=== PATIENT | female | born 1985 | race Caucasian/White ===

== ENCOUNTER 2018-02-11 16:37 | Emergency (ER) | payer OTHER ==
[2018-02-11] MEDS ORDERED: Sodium Chloride 0.9% 10 ML Syringe FLUSH PRN (16:48)
[2018-02-11] MEDS ORDERED: Sodium Chloride 0.9% 1,000 ML IV ONE (16:50)
[2018-02-11] MEDS ORDERED: Ketorolac 30 MG/ML SDV IVPUSH ONE (16:50)
--- NOTE | 2018-02-11 17:06 | EDM.PDOC ---
ED HPI GENERAL MEDICAL PROBLEM - General Chief Complaint: General Stated Complaint: [id number] HIGH FEVER NAUSEA DIZZY Time Seen by Provider: 02/11/18 16:50 Source of Information: Reports: Patient History Limitations: Reports: No Limitations - History of Present Illness INITIAL COMMENTS - FREE TEXT/NARRATIVE: Patient comes emergency department today with complaints of headaches sore throat and fever that started last night. She has taken some ibuprofen last night and some Tylenol earlier today which has helped the fever but is still quite elevated. She complains of a sore throat. No ear pain and sinus congestion. Generalized headache. Sore throat. No chest pain no shortness of breath difficulty breathing or cough. No abdominal pain but does complain of some bilateral flank pain. No hematuria dysuria or urinary frequency outside of the norm she reports. She typically urinates on a more frequent basis. She does complain of generalized malaise and fatigue and minimal myalgias. No neck pain. No confusion. No rash. She is currently on her menstrual cycle. Headache Pain Score (Numeric/FACES): 3 - Related Data Allergies Allergy/AdvReac Type Severity Reaction Status Date / Time No Known Allergies Allergy Verified 02/11/18 16:41 Home Meds: Home Meds Magnesium 500 mg PO DAILY 02/20/16 [History] Past Medical History - Past Health History Medical/Surgical History: Denies Medical/Surgical History HEENT History: Reports: Impaired Vision Other HEENT History: wears glasses [employer] History: Reports: - Past Surgical History HEENT Surgical History: Reports: Adenoidectomy, Tonsillectomy Social & Family History - Family History Family Medical History: Noncontributory - Tobacco Use Smoking Status *Q: Never Smoker Second Hand Smoke Exposure: No - Caffeine Use Caffeine Use: Reports: Coffee - Recreational Drug Use Recreational Drug Use: No ED ROS GENERAL - Review of Systems Review Of Systems: ROS reveals no pertinent complaints other than HPI. ED EXAM, GENERAL - Physical Exam Exam: See Below Free Text/Narrative:: Appears quite flushed and somewhat fatigued. Exam Limited By: No Limitations General Appearance: Alert, WD/WN, Mild Distress Eye Exam: Bilateral Eye: Normal Inspection Ears: Normal External Exam, Normal TMs Ear Exam: Bilateral Ear: TM normal Nose: Normal Inspection, Normal Mucosa Throat/Mouth: Other (Generalized pharyngitis with erythema no exudate. Tonsils have been surgically removed. Uvula is midline. No drooling.) Head: Atraumatic, Normocephalic. No: Facial Swelling, Sinus Tenderness Neck: Normal Inspection, Non-Tender, Lymphadenopathy (L), Lymphadenopathy (R) ( Left greater than right primarily tonsillar lymphadenopathy.). No: Tender Lateral, Tender Midline Respiratory/Chest: No Respiratory Distress, Lungs Clear, Normal Breath Sounds, No Accessory Muscle Use, Chest Non-Tender Cardiovascular: Normal Peripheral Pulses, Regular Rate, Rhythm Peripheral Pulses: 2+: Radial (L), Radial (R), Posterior Tibial (L), Posterior Tibial (R), Dorsalis Pedis (L), Dorsalis Pedis (R) GI/Abdominal: Normal Bowel Sounds, Soft, Pelvis Stable, Tender (Mild tenderness to the left UPPER quadrant no rebound tenderness or guarding. ). No: No Organomegaly (? splenomegaly. ) (Female) Exam: Deferred Rectal (Female) Exam: Deferred Back Exam: Normal Inspection, Full Range of Motion Extremities: Normal Inspection, Normal Range of Motion, Non-Tender, Normal Capillary Refill Neurological: Alert, Oriented, CN II-XII Intact, No Motor/Sensory Deficits Skin Exam: Erythema, Increased Warmth. No: Rash Course - Vital Signs Last Recorded V/S: Last Vital Signs Temp 37.7 C 02/11/18 18:43 Pulse 88 02/11/18 18:43 Resp 15 02/11/18 18:43 BP 110/50 L 02/11/18 18:43 Pulse Ox 98 02/11/18 18:43 - Orders/Labs/Meds Orders: Active Orders 24 hr Category Date Time Status Peripheral IV Care [RC] . DIRECTED Care 02/11/18 16:49 Active CULTURE STREP A CONFIRMATION [RM] Stat Lab 02/11/18 16:56 Results HCG QUALITATIVE,URINE [URCHEM] Stat Lab 02/11/18 17:03 Ordered STREP SCRN A RAPID W CULT CONF [RM] Stat Lab 02/11/18 16:56 Results UA W/MICROSCOPIC [URIN] Stat Lab 02/11/18 17:03 Ordered [facility] [REF] Stat Lab 02/11/18 17:01 Received Peripheral IV Insertion Adult [OM.PC] Stat Oth 02/11/18 16:48 Ordered Labs: Laboratory Tests 02/11/18 02/11/1802/11/18 Range/Units 17:01 17:01 17:01 WBC 10.0 (5.0-10.0) 10^3/uL RBC 4.40 (4.2-5.4) 10^6/uL Hgb 13.2 (12.0-16.0) g/dL Hct 38.6 (37.0-47.0) % MCV 87.7 D (80-100) fL MCH 30.0 (27.0-34.0) pg MCHC 34.2 (33.0-35.0) g/dL Plt Count 215 (150-450) 10^3/uL Neut % (Auto) 81.1 H (42.2-75.2) % Lymph % (Auto) 7.5 L (20.5-50.1) % [place] % (Auto) 10.8 H (2-8) % Eos % (Auto) 0.4 L (1.0-3.0) % Baso % (Auto) 0.2 (0.0-1.0) % Sodium 134 L (135-145) mmol/L Potassium 3.1 L (3.6-5.0) mmol/L Chloride 103 (101-111) mmol/L Carbon Dioxide 23.0 (21.0-31.0) mmol/L Anion Gap 11.1 BUN 13 (7-18) mg/dL Creatinine 0.6 (0.6-1.3) mg/dL Est Cr Clr Drug Dosing 116.24 mL/min Estimated GFR (MDRD) > 60 BUN/Creatinine Ratio 21.66 Glucose 142 H (74-105) mg/dL Lactic Acid 1.2 (0.5-2.2) mmol/L Calcium 8.8 (8.4-10.2) mg/dl Total Bilirubin 0.5 (0.2-1.0) mg/dL AST 17 (10-42) IU/L ALT 13 (10-60) IU/L Alkaline Phosphatase 38 L (42-121) IU/L C-Reactive Protein (0.0-1.3) mg/dL Total Protein 6.9 (6.7-8.2) g/dl Albumin 3.8 (3.2-5.5) g/dl Globulin 3.1 Albumin/Globulin Ratio 1.23 Urine Color (YELLOW) Urine Appearance (CLEAR) Urine pH (5.0-9.0) Ur Specific [place] (1.005-1.030) Urine Protein (NEGATIVE) Urine Glucose (UA) (NEGATIVE) Urine Ketones (NEGATIVE) Urine Occult Blood (NEGATIVE) Urine Nitrite (NEGATIVE) Urine Bilirubin (NEGATIVE) Urine Urobilinogen (0.2-1.0) mg/dL Ur Leukocyte Esterase (NEGATIVE) Urine RBC /HPF Urine WBC (0-5/HPF) /HPF Ur Epithelial Cells /HPF Amorphous Sediment (0/HPF) /HPF Urine Bacteria (0-FEW/HPF) /HPF Urine Mucus /LPF Urine HCG, Qual Monoscreen 02/11/18 02/11/18 02/11/18 Range/Units 17:01 17:01 17:03 WBC (5.0-10.0) 10^3/uL RBC (4.2-5.4) 10^6/uL Hgb (12.0-16.0) g/dL Hct (37.0-47.0) % MCV (80-100) fL MCH (27.0-34.0) pg MCHC (33.0-35.0) g/dL Plt Count (150-450) 10^3/uL Neut % (Auto) (42.2-75.2) % Lymph % (Auto) (20.5-50.1) % [place] % (Auto) (2-8) % Eos % (Auto) (1.0-3.0) % Baso % (Auto) (0.0-1.0) % Sodium (135-145) mmol/L Potassium (3.6-5.0) mmol/L Chloride (101-111) mmol/L Carbon Dioxide (21.0-31.0) mmol/L Anion Gap BUN (7-18) mg/dL Creatinine (0.6-1.3) mg/dL Est Cr Clr Drug Dosing mL/min Estimated GFR (MDRD) BUN/Creatinine Ratio Glucose (74-105) mg/dL Lactic Acid (0.5-2.2) mmol/L Calcium (8.4-10.2) mg/dl Total Bilirubin (0.2-1.0) mg/dL AST (10-42) IU/L ALT (10-60) IU/L Alkaline Phosphatase (42-121) IU/L C-Reactive Protein 5.8 H (0.0-1.3) mg/dL Total Protein (6.7-8.2) g/dl Albumin (3.2-5.5) g/dl Globulin Albumin/Globulin Ratio Urine Color Yellow (YELLOW) Urine Appearance Slightly cloudy (CLEAR) Urine pH 7.0 (5.0-9.0) Ur Specific [place] 1.015 (1.005-1.030) Urine Protein Negative (NEGATIVE) Urine Glucose (UA) Negative (NEGATIVE) Urine Ketones Negative (NEGATIVE) Urine Occult Blood Small H (NEGATIVE) Urine Nitrite Negative (NEGATIVE) Urine Bilirubin Negative (NEGATIVE) Urine Urobilinogen 0.2 (0.2-1.0) mg/dL Ur Leukocyte Esterase Negative (NEGATIVE) Urine RBC 0-5 /HPF Urine WBC 0-5 (0-5/HPF) /HPF Ur Epithelial Cells Moderate H /HPF Amorphous Sediment Moderate H (0/HPF) /HPF Urine Bacteria Few (0-FEW/HPF) /HPF Urine Mucus Rare /LPF Urine HCG, Qual Monoscreen Negative 02/11/18 Range/Units 17:03 WBC (5.0-10.0) 10^3/uL RBC (4.2-5.4) 10^6/uL Hgb (12.0-16.0) g/dL Hct (37.0-47.0) % MCV (80-100) fL MCH (27.0-34.0) pg MCHC (33.0-35.0) g/dL Plt Count (150-450) 10^3/uL Neut % (Auto) (42.2-75.2) % Lymph % (Auto) (20.5-50.1) % [place] % (Auto) (2-8) % Eos % (Auto) (1.0-3.0) % Baso % (Auto) (0.0-1.0) % Sodium (135-145) mmol/L Potassium (3.6-5.0) mmol/L Chloride (101-111) mmol/L Carbon Dioxide (21.0-31.0) mmol/L Anion Gap BUN (7-18) mg/dL Creatinine (0.6-1.3) mg/dL Est Cr Clr Drug Dosing mL/min Estimated GFR (MDRD) BUN/Creatinine Ratio Glucose (74-105) mg/dL Lactic Acid (0.5-2.2) mmol/L Calcium (8.4-10.2) mg/dl Total Bilirubin (0.2-1.0) mg/dL AST (10-42) IU/L ALT (10-60) IU/L Alkaline Phosphatase (42-121) IU/L C-Reactive Protein (0.0-1.3) mg/dL Total Protein (6.7-8.2) g/dl Albumin (3.2-5.5) g/dl Globulin Albumin/Globulin Ratio Urine Color (YELLOW) Urine Appearance (CLEAR) Urine pH (5.0-9.0) Ur Specific [place] (1.005-1.030) Urine Protein (NEGATIVE) Urine Glucose (UA) (NEGATIVE) Urine Ketones (NEGATIVE) Urine Occult Blood (NEGATIVE) Urine Nitrite (NEGATIVE) Urine Bilirubin (NEGATIVE) Urine Urobilinogen (0.2-1.0) mg/dL Ur Leukocyte Esterase (NEGATIVE) Urine RBC /HPF Urine WBC (0-5/HPF) /HPF Ur Epithelial Cells /HPF Amorphous Sediment (0/HPF) /HPF Urine Bacteria (0-FEW/HPF) /HPF Urine Mucus /LPF Urine HCG, Qual Negative Monoscreen Meds: Medications Discontinued Medications Generic Name Dose Route Start Last Admin Trade Name Freq PRN Reason Stop Dose Admin Sodium Chloride 1,000 mls @ 999 mls/hr 02/11/18 16:50 02/11/18 17:01 Normal Saline IV 02/11/18 17:50 999 mls/hr .BOLUS ONE Administration Ketorolac Tromethamine 30 mg 02/11/18 16:50 02/11/18 17:01 Toradol IVPUSH 02/11/18 16:51 30 mg ONETIME ONE Administration Sodium Chloride 10 ml 02/11/18 16:48 02/11/18 17:02 Saline Flush FLUSH 10 ml ASDIRECTED PRN Administration Keep Vein Open - Re-Assessments/Exams Free Text/Narrative Re-Assessment/Exam: 02/11/18 17:07 IV NS 1 liter wide open Ketorolac 30mg IVP 02/11/18 following the above therapy the patient was rather symptomatic free. Her headaches sore throat myalgias and fatigue was resolved. She feels back to normal she relates. Her laboratory evaluation is rather unremarkable with a normal white blood cell count although she does have a minimally elevated monos as well.Her strep screen and urinalysis are negative at this time. Whenever she does not have mononucleosis with erythema in the sore throat or monoscreen is negative although this is not uncommon in the early stages mononucleosis.If she gets worse in any way in the next couple of days she is to recheck. Symptomatic management at this time. Departure - Departure Time of Disposition: 18:33 Disposition: Home, Self-Care 01 Clinical Impression: Febrile illness, Dehydration fever - Discharge Information Instructions: Fever, Adult, [id number] Forms: ED Department Discharge Additional Instructions: Tylenol and or Ibuprofen as needed for pain fever. Push oral fluids over the next few days. Rest as much as possible. Return to the ED if new or worsening symptoms. Follow up with primary care provider in the next 4-6 days for recheck. - My Orders Last 24 Hours: My Active Orders 02/11/18 16:48 Peripheral IV Insertion Adult [OM.PC] Stat 02/11/18 16:49 Peripheral IV Care [RC] . DIRECTED 02/11/18 16:56 CULTURE STREP A CONFIRMATION [RM] Stat STREP SCRN A RAPID W CULT CONF [RM] Stat 02/11/18 17:01 [facility] [REF] Stat 02/11/18 17:03 HCG QUALITATIVE,URINE [URCHEM] Stat UA W/MICROSCOPIC [URIN] Stat - Assessment/Plan Last 24 Hours: My Active Orders 02/11/18 16:48 Peripheral IV Insertion Adult [OM.PC] Stat 02/11/18 16:49 Peripheral IV Care [RC] . DIRECTED 02/11/18 16:56 CULTURE STREP A CONFIRMATION [RM] Stat STREP SCRN A RAPID W CULT CONF [RM] Stat 02/11/18 17:01 [facility] [REF] Stat 02/11/18 17:03 HCG QUALITATIVE,URINE [URCHEM] Stat UA W/MICROSCOPIC [URIN] Stat Assessment:: Fever, ? mononucleosis. Plan: Tylenol and or Ibuprofen as needed for pain fever. Push oral fluids over the next few days. Rest as much as possible. Return to the ED if new or worsening symptoms. Follow up with primary care provider in the next 4-6 days for recheck.
[2018-02-11 17:30] LABS: ANION GAP 11.1; CHLORIDE,CL 103 mmol/L (101-111); SODIUM,NA 134 mmol/L (135-145)
[2018-02-11 18:45] VITALS: BP 110/50
== END 2018-02-11 18:46 | disposition home or self-care (01) ==
LOC: DL.ED 16:37
DX: E86.0 Dehydration (principal); R50.9 Fever, unspecified
CPT/HCPCS: 36415; 80053; 81001; 81025; 83605; 85025; 86140; 86308; 86788; 87081; 87430; 96361; 96374; 99283; J1885; J7030; J7050